=== PATIENT | male | born 1980 | race Caucasian/White ===

== ENCOUNTER 2019-12-24 12:27 | Emergency (ER) | payer OTHER ==
[2019-12-24] MEDS ORDERED: Lidocaine 1% 30 ML SDV INJECT ONE (12:54)
[2019-12-24] MEDS ORDERED: Bupivacaine 0.5% 30 ML SDV INJECT PRN (13:02)
--- NOTE | 2019-12-24 13:14 | EDM.PDOC ---
ED HPI GENERAL MEDICAL PROBLEM - General Stated Complaint: RIGHT MIDDLE FINGER LACERATION Time Seen by Provider: 12/24/19 12:55 Source of Information: Reports: Patient History Limitations: Reports: No Limitations - History of Present Illness INITIAL COMMENTS - FREE TEXT/NARRATIVE: Patient comes emergency department today with complaints of an injury to his left middle finger. This happened just prior to arrival. 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 His finger was smashed dorsally and ventrally in a jig. He denies any paresthesias or other injury to his left hand. His last tetanus immunization was about 2 to 3 years ago. - Related Data Allergies Allergy/AdvReac Type Severity Reaction Status Date / Time No Known Allergies Allergy Verified 09/04/17 07:00 Home Meds: Home Meds Amlodipine Besylate/Valsartan [Amlodipine-Valsartan 5-320 mg] 1 tab DAILY [History] Ondansetron HCl [Zofran] 1 tab PO Q8H PRN 3 Days #10 tablet 09/04/17 [Rx] Past Medical History - Past Health History Medical/Surgical History: Denies Medical/Surgical History Cardiovascular History: Reports: Hypertension - Past Surgical History Musculoskeletal Surgical History: Reports: Arthroscopic Knee Social & Family History - Family History Family Medical History: Noncontributory - Living Situation & Occupation Living situation: Reports: , with Family Occupation: Employed ED ROS GENERAL - Review of Systems Review Of Systems: Comprehensive ROS is negative, except as noted in HPI. ED EXAM, SKIN/RASH Exam: See Below Exam Limited By: No Limitations General Appearance: Alert, WD/WN, No Apparent Distress Respiratory/Chest: No Respiratory Distress Cardiovascular: Normal Peripheral Pulses, Regular Rate, Rhythm Peripheral Pulses: 2+: Radial (L), Radial (R) Extremities: Normal Capillary Refill, Other (The rest of the left hand is atraumatic). No: Normal Inspection (On the pad surface of the left third finger there is an approximate 3-1/2 cm laceration that extends into the subcutaneous tissue. It is not completely circumferential and it makes a ramona around the pad surface from one aspect of the lateral aspect of the nail to the medial aspect of the nail. Patient is able to flex and extend at the DIP PIP and MCP joints appropriately. CMS is intact appropriately. No overt bony deformity.), Limited Range of Motion Psychiatric: Normal Affect Skin: Warm, Dry ED SKIN PROCEDURES - Laceration/Wound Repair Left Middle Digit - 3rd (Middle) Appearance: Subcutaneous, Linear, Clean Distal NVT: Neuro & Vascular Intact, No Tendon Injury Anesthetic Type: Digital Local Anesthesia - Lidocaine (Xylocaine): 0.5% Plain Local Anesthesia - Bupivicaine (Marcaine): 0.5% Plain Local Anesthetic Volume: 4cc Skin Prep: Chlorhexidine (Hibiciens), Saline (500mls ) Exploration/Debridement/Repair: Wound Explored, In a Bloodless Field, Explored to Base Closed with: Sutures Lac/Wound length In cm: 4 Suture Size: 5-0 # of Sutures: 8 Suture Type: Nylon Sterile Dressing Applied: Nurse Tetanus Status Addressed: Yes Complications: No Course - Orders/Labs/Meds Orders: Active Orders 24 hr Category Date Time Status Vaccines to be Administered [RC] PER UNIT ROUTINE Care 12/24/19 13:27 Active Fingers Third Digit Lt F2 [CR] Stat Exams 12/24/19 13:03 Taken Bupivacaine 0.5% [Marcaine 0.5%] Med 12/24/19 13:02 Active 30 ml INJECT ASDIRECTED PRN Medication Orders Bupivacaine HCl (Marcaine 0.5%) 30 ml INJECT ASDIRECTED PRN PRN Reason: Other Last Admin: 12/24/19 13:36 Dose: 30 ml Meds: Medications Generic Name Dose Route Start Last Admin Trade Name Freq PRN Reason Stop Dose Admin Bupivacaine HCl 30 ml 12/24/19 13:02 12/24/19 13:36 Marcaine 0.5% INJECT 30 ml ASDIRECTED PRN Administration Other Discontinued Medications Generic Name Dose Route Start Last Admin Trade Name Freq PRN Reason Stop Dose Admin Diphtheria/Tetanus/Acell Pertussis 0.5 ml 12/24/19 13:27 12/24/19 13:35 Adacel IM 12/24/19 13:28 0.5 ml .ONCE ONE Administration Lidocaine HCl 30 ml 12/24/19 12:54 12/24/19 13:36 Xylocaine-Mpf 1% INJECT 12/24/19 12:55 30 ml ONETIME ONE Administration - Re-Assessments/Exams Free Text/Narrative Re-Assessment/Exam: 12/24/19 13:13 Risk and benefits of a digital block to the left hand were discussed with the patient. Verbal consent was obtained. 1% lidocaine without epinephrine and 0.5 % bupivacaine without epinephrine was mixed in a 50-50 fashion. After the base of the left middle finger was cleansed with Betadine and allowed to dry the appropriate time period. 2 mils of the above mixture was injected medially and laterally at the base of the proximal phalange of the left middle finger. Hemostasis was obtained spontaneously. 12/24/19 14:08 The xray of the finger is negative for fracture. The wound was cleanse quite aggresively with bet scrub. NO foreign material. Closed with sutures. will place on cephalexin due to the fact that the patient wears gloves at work. HE is comfortable with the plans and his questions answered. Departure - Departure Time of Disposition: 13:40 Disposition: Home, Self-Care 01 Clinical Impression: Crushing injury of finger of left hand Laceration of finger of left hand Qualifiers: Encounter type: initial encounter Finger: middle finger Damage to nail status: without damage Foreign body presence: without foreign body Qualified Code(s): S61.213A - Laceration without foreign body of left middle finger without damage to nail, initial encounter - Discharge Information Instructions: Laceration Care, Adult, [id number] Forms: ED Return to Work/School Form Additional Instructions: Tylenol and or Ibuprofen as needed for pain. Cleanse wound twice daily with soap and water. Okay to have running water over do not soak finger in water Bacitracin and bandage until healed. Watch for signs of infection. Sutures out in 10 days. Cephalexin 500 mg 1 tab by mouth 4 times daily x5 days. #20. RX given to the patient. Finger guard for protection at work. Keep hand clean and dry while at work protect from injury. Return to the ED if new or worsening symptoms. Sepsis Event Note - Focused Exam Date Exam was Performed: 12/24/19 Time Exam was Performed: 14:06 - My Orders Last 24 Hours: My Active Orders 12/24/19 13:02 Bupivacaine 0.5% [Marcaine 0.5%] 30 ml INJECT ASDIRECTED PRN 12/24/19 13:03 Fingers Third Digit Lt F2 [CR] Stat 12/24/19 13:27 Vaccines to be Administered [RC] PER UNIT ROUTINE - Assessment/Plan Last 24 Hours: My Active Orders 12/24/19 13:02 Bupivacaine 0.5% [Marcaine 0.5%] 30 ml INJECT ASDIRECTED PRN 12/24/19 13:03 Fingers Third Digit Lt F2 [CR] Stat 12/24/19 13:27 Vaccines to be Administered [RC] PER UNIT ROUTINE Plan: Tylenol and or Ibuprofen as needed for pain. Cleanse wound twice daily with soap and water. Okay to have running water over do not soak finger in water Bacitracin and bandage until healed. Watch for signs of infection. Sutures out in 10 days. Cephalexin 500 mg 1 tab by mouth 4 times daily x5 days. #20. RX given to the patient. Finger guard for protection at work. Keep hand clean and dry while at work protect from injury. Return to the ED if new or worsening symptoms.
[2019-12-24] MEDS ORDERED: Diphtheria,Pertussis(Acell),Tetanus Vaccine 0.5 ML Syringe IM ONE (13:27)
--- NOTE | 2019-12-25 09:01 | CR ---
[id number] RAD/RAD Fingers Left EXAM: RAD Fingers Left CLINICAL DATA: TRAUMA COMPARISON: NO PREVIOUS SIMILAR EXAM IS AVAILABLE. FINDINGS: No fracture or dislocation is seen. There is no radiopaque foreign body in the soft tissues. There is no air in the soft tissues. There is no cortical thickening or periosteal reaction either. IMPRESSION: NO BONY ABNORMALITY Boo oNrman MD 12/25/19 [id number] Thank you for allowing us to participate in the care of your patient.
== END 2019-12-24 14:00 | disposition home or self-care (01) ==
LOC: VM.ED 12:27
DX: S67.193A Crushing injury of left middle finger, initial encounter (principal); S61.213A Laceration without foreign body of left middle finger without damage to nail, initial encounter; Z23 Encounter for immunization; I10 Essential (primary) hypertension; Z79.899 Other long term (current) drug therapy; W23.0XXA Caught, crushed, jammed, or pinched between moving objects, initial encounter; Y99.0 Civilian activity done for income or pay
CPT/HCPCS: 12002; 73140-F2; 90471; 90715; 99283-25; J2001; J3490